=== PATIENT | male | born 1990 | race Two or more races ===

== ENCOUNTER 2025-02-07 20:03 | Inpatient (IN) | payer MEDICAID, OTHER ==
[~2025-02-07] VITALS: Ht 172.7 cm; Wt 101.1 kg
[2025-02-07] MEDS: SODIUM CHLORIDE 0.9% 500 ML IV ONE ×2 (02:00→21:19)
--- NOTE | 2025-02-07 20:58 | ED.PDOC ---
History of Present Illness(SKN HPI Comments 35-year-old male who came to ER for wound check. Accompanied by mother, states that patient has been having nonhealing wounds in both his legs for over 2 months. Denies going to any doctor regarding this wounds. Noted also to be short of breath. For the past day, mother noted patient to be confused and altered prompting her to bring him to the ER. Patient denies using any prohibited drugs recently. Upon arrival of the emergency room, patient is saturating 82% on room air, tachycardic at the 130s, blood pressure 107/54 mm Hg, and with a blood sugar of 200. Reports patient history asthma and CHF. He does not follow up with the PCP regularly. He has suffered medications at this time. Patient is a poor historian. Chief Complaint: Wound Check Time Seen by MD: 20:57 History of Present Illness: Nurses Notes Allergies: Coded Allergies: NO KNOWN ALLERGIES (Unverified , 02/07/25) Information Source: Patient, Relative (Mother) Mode of Arrival: Wheelchair Severity: Moderate Timing: Weeks Duration: Since onset Location: Leg Mechanism: Spontaneous Onset Condition of Object: Contaminated Associated Signs and Symptoms: Redness, Swelling, Pus Vital Signs Vital Signs Date Time Temp Pulse Resp B/P (MAP) Pulse Ox O2 Delivery O2 Flow Rate FiO2 02/07/25 22:30 97.7 104 17 167/134 (145) 100 97.7 Physical Exam General: Patient is lethargic, Skin: Skin in warm, dry and intact. Appropriate color for ethnicity. HEENT: The head is normocephalic and atraumatic. Conjunctivae are clear without exudates or hemorrhage. Sclera is non-icteric. EOM are intact. No signs of nystagmus. Eyelids are normal in appearance without swelling or lesions. Oral mucosa is pink and moist Neck: The neck is supple with normal range of motion. Cardiac: Heart rate and rhythm are normal. No murmurs, gallops, or rubs are auscultated. Respiratory: No signs of respiratory distress. Positive rales bilaterally Abdominal: Abdomen is soft, non-tender without distention. Bowel sounds are present and normoactive in all four quadrants. Extremities: Bilateral lower extremity edema with soiled dressings in place. Bilateral DP pulses palpable. Good capillary refill. Lower extremities are erythematous with extensive areas of purulent open wounds. Neurological: The patient is lethargic, easily arousable, following commands. Speech is slow. There is no facial asymmetry. Psychiatric: The patient appears withdrawn with flat affect Review of Systems: Unable to obtain due to altered mental status. Patient is reporting bilateral lower extremity pain. Past Medical History PAST MEDICAL HISTORY: Asthma, CHF Surgical History: Denies all surgeries Family History Family History: Reviewed,noncontributory to illness Social History Smoker: Non-Smoker Alcohol: Denies ETOH Use Drugs: Denies Drug Use Lives In: Home Was a procedure done? Was a procedure done?: No Differential Diagnosis (INTG) Differential Diagnosis: Abscess, Cellulitis Abscess: Abscess, Bacteremia, Cellulitis, Erysipelas, Gas Gangrene Differential Diagnosis: Osteomyelitis, Other X-Ray, Labs, Meds, VS Vital Signs Date Time Temp Pulse Resp B/P (MAP) Pulse Ox O2 Delivery O2 Flow Rate FiO2 02/07/25 22:30 97.7 104 17 167/134 (145) 100 97.7 02/07/25 20:14 99.6 136 25 107/54 (71) 92 99.6 Lab Test 02/08/25 00:26 02/08/25 00:20 02/07/25 23:19 02/07/25 22:50 Range/Units Urine Color Yellow Yellow Urine Clarity Clear Clear Urine pH 7.5 5.0-9.0 Urine Specific [place] > 1.050 H 1.001-1.035 Urine Protein 2+ H Negative Urine Ketones Negative Negative Urine Blood 2+ H Negative /uL Urine Nitrite Negative Negative Urine Bilirubin Negative Negative Urine Urobilinogen Over Negative mg/dL Urine Leukocyte Esterase Negative Negative /uL Urine RBC 3 0 - 3 /hpf Urine Microscopic WBC 1 0-3 /HPF Urine Squamous Epithelial Cells None seen <5 /hpf Urine Bacteria None seen None Seen /hpf Urine Glucose Trace Normal mg/dL Urine Opiates Screen Neg NEGATIVE Urine Fentanyl Screen Pos NEGATIVE Urine Barbiturates Screen Neg NEGATIVE Urine Phencyclidine Screen Neg NEGATIVE Urine Amphetamines Screen Pos NEGATIVE Urine Benzodiazepines Screen Neg NEGATIVE Urine Cocaine Screen Neg NEGATIVE Urine Cannabinoids Screen Neg NEGATIVE Prothrombin Time 11.9 H 9.3-11.8 sec Prothrombin Time INR 1.14 0.9-1.15 Troponin I High Sensitivity 6 </=54 ng/L Blood Gas Specimen Type Arterial Blood Gas Sample Site Left radial Blood Gas Patient Temperature 37.0 Arterial Blood Date Drawn [id number] Arterial Blood pH 7.467 H 7.350-7.450 Arterial Blood Partial Pressure CO2 37.2 35.0-48.0 mmHg Arterial Blood Partial Pressure O2 86.5 83.0-108.0 mmHg Arterial Blood HCO3 26.3 21.0-28.0 mmol/L Arterial Blood Oxygen Saturation 96.9 94.0-98.0 % Arterial Blood Base Excess 2.6 -2.0-3.0 mmol/L Arterial Blood Oxyhemoglobin 96.1 94.0-98.0 % Arterial Blood Carboxyhemoglobin 0.3 L 0.5-1.5 % Arterial Blood Methemoglobin 0.5 0.0-1.5 % Attila Test Yes Blood Gas Total Hemoglobin 11.70 L 13.5-17.5 g/dL Blood Gas Liter Flow 4.00 Blood Gas Modality Nasal cannula FiO2 % 36.0 Lactic Acid Level 1.8 0.4-2.0 mmol/L Test 02/07/25 22:05 02/07/25 21:00 02/07/25 20:19 Range/Units Troponin I High Sensitivity 5 5 </=54 ng/L White Blood Count 15.4 H 4.4-10.8 10^3/uL Red Blood Count 4.19 L 4.5-5.90 10^6/uL Hemoglobin 11.4 L 13.5-17.5 g/dL Hematocrit 34.4 L 41.0-53.0 % Mean Corpuscular Volume 82.2 80.0-100.0 fL Mean Corpuscular Hemoglobin 27.3 L 28.0-32.0 pg Mean Corpuscular Hemoglobin Concent 33.2 32.0-36.0 g/dL Red Cell Distribution Width 13.4 11.8-14.3 % Platelet Count 298 140-450 10^3/uL Mean Platelet Volume 6.8 L 6.9-10.8 fL Neutrophils (%) (Auto) 91.3 H 37.0-80.0 % Lymphocytes (%) (Auto) 5.7 L 10.0-50.0 % Monocytes (%) (Auto) 2.4 0.0-12.0 % Eosinophils (%) (Auto) 0.4 0.0-7.0 % Basophils (%) (Auto) 0.2 0.0-2.0 % Neutrophils # (Auto) 14.1 H 1.6-8.6 10 ^3/uL Lymphocytes # (Auto) 0.9 0.4-5.4 10 ^3/uL Monocytes # (Auto) 0.4 0-1.3 10 ^3/uL Eosinophils # (Auto) 0.1 0-0.8 10 ^3/uL Basophils # (Auto) 0 0-0.2 10 ^3/uL Nucleated Red Blood Cells 0.1 % Sodium Level 131 L 136-145 mmol/L Potassium Level 3.8 3.5-5.1 mmol/L Chloride Level 99 98-107 mmol/L Carbon Dioxide Level 21 20-31 mmol/L Anion Gap 11 5-15 Blood Urea Nitrogen 11 9-23 mg/dL Creatinine 0.81 0.700-1.30 mg/dL Glomerular Filtration Rate Calc 118 >90 mL/min BUN/Creatinine Ratio 13.6 10.0-20.0 Serum Glucose 173 H 74-106 mg/dL Lactic Acid Level 2.7 *H 0.4-2.0 mmol/L Calcium Level 8.2 L 8.7-10.4 mg/dL Total Bilirubin 0.3 0.2-1.0 mg/dL Aspartate Amino Transferase (AST) 50 H 13-40 U/L Alanine Aminotransferase (ALT) 44 H 7-40 U/L Alkaline Phosphatase 130 H 46-116 U/L B-Type Natriuretic Peptide 28.84 0-100 pg/mL Total Protein 6.8 5.7-8.2 g/dL Albumin 3.0 L 3.2-4.8 g/dL Plasma/Serum Blood Alcohol < 3.0 <10 mg/dL POC Glucose 200 H 70-106 mg/dl Microbiology Date/Time Source Procedure Growth Status 02/07/25 21:00 Blood Blood Culture - Preliminary Resulted 02/07/25 20:48 Blood Blood Culture - Preliminary Resulted 02/07/25 20:30 Leg Right Gram Stain - Final Resulted 02/07/25 20:30 Leg Right Wound Culture - Preliminary Resulted 02/07/25 20:30 Leg Left Gram Stain - Final Resulted 02/07/25 20:30 Leg Left Wound Culture - Preliminary Resulted Current Medications Medications (Trade) Dose Ordered Sig/Evelin Route Start Time Stop Time Status Last Admin Ketorolac Tromethamine (Toradol Injection) 15 mg ONCE ONCE IV 02/07/25 20:45 02/07/25 20:46 DC 02/07/25 21:23 Acetaminophen (Ofirmev) 1,000 mg ONCE ONCE IV 02/07/25 20:45 02/07/25 20:46 DC 02/07/25 21:24 Sodium Chloride 500 ml @ 500 mls/hr Q1H ONCE IV 02/07/25 20:45 02/07/25 21:44 DC 02/07/25 21:19 Vancomycin HCl 250 ml @ 250 mls/hr ONCE ONCE IV 02/07/25 20:45 02/07/25 21:44 DC 02/07/25 21:45 Ceftriaxone Sodium 50 ml @ 100 mls/hr ONCE ONCE IV 02/07/25 20:45 02/07/25 21:14 DC 02/07/25 21:23 Sodium Chloride 500 ml @ 500 mls/hr Q1H ONCE IV 02/07/25 23:15 02/08/25 00:14 DC 02/07/25 02:00 Bilateral lower extremity venous duplex Clinical History: b/l le edema Comparison: None Technique: Duplex Doppler evaluation of the deep venous systems of both lower extremities from the common femoral veins to the popliteal veins including color Doppler and spectral/pulsed waveform analysis was performed. Findings: RIGHT SIDE: The common femoral vein demonstrates appropriate compressibility and waveform variability. There is compressibility/patency of the great saphenous vein at the proximal thigh. The femoral vein demonstrates appropriate compressibility and waveform variability. The deep femoral vein demonstrates appropriate compressibility and waveform variability. The popliteal vein demonstrates appropriate compressibility and waveform variability. There is normal compressibility at the tibioperoneal trunk. LEFT SIDE: The common femoral vein demonstrates appropriate compressibility and waveform variability. There is compressibility/patency of the great saphenous vein at the proximal thigh. The femoral vein demonstrates appropriate compressibility and waveform darrion iability. The deep femoral vein demonstrates appropriate compressibility and waveform variability. The popliteal vein demonstrates appropriate compressibility and waveform variability. There is normal compressibility at the tibioperoneal trunk. Impression: No evidence of right or left femoropopliteal venous thrombosis. CHEST RADIOGRAPH Indication: Suspected Sepsis Technique: Single frontal view of the chest was obtained COMPARISON: None FINDINGS / IMPRESSION: Lines and Tubes: None Lungs: Extensive airspace consolidation in right lower lobe consistent with pneumonia. Mild nonspecific opacity noted at left lung base which may also represent pneumonia. Pleura: No effusion. No pneumothorax. Cardiomediastinal contours: Unremarkable PROCEDURE(s): CTACH - CT ANGIO CHEST CONTRAST REASON: dyspnea, hypoxia, le edema ORDER NUMBER(s): [id number], ACCESSION NUMBER(s): [id number] CLINICAL HISTORY: dyspnea, hypoxia, le edema TECHNIQUE: CT angiogram of the chest was performed with intravenous contrast. 3D MIP reconstructed images were created and archived on the PACS system. This exam was performed according to our departmental dose optimization program. Up-to-date CT equipment and radiation dose reduction techniques are utilized as appropriate. CTDI: DLP: WID: COMPARISON: None FINDINGS: Lower Neck: Unremarkable Axilla, Mediastinum and Piedad: No axillary lymphadenopathy. There is mediastinal and bilateral hilar lymphadenopathy. Heart and Great Vessels: Normal-sized heart without pericardial effusion. Thoracic aorta is patent and normal caliber. Patent 3-vessel aortic arch. There is no central or segmental pulmonary artery filling defect identified. Slight limited evaluation of subsegmental pulmonary arteries due to respiratory motion. Airway, Lungs and Pleura: There is layering debris in the trachea and right bronchus intermedius. There are patchy airspace consolidations bilaterally and a large patchy and confluent airspace consolidation in the right lower. Small right pleural effusion. Chest Wall and Osseous Structures: Unremarkable. Upper abdomen: Thickening of the bilateral adrenal glands. Prior cholecystectomy. No acute abnormality. IMPRESSION: 1. No evidence of pulmonary embolism. 2. Multifocal bilateral pneumonia. This is severe in the right lower lobe where there is a large airspace consolidation. This could potentially be on the basis of aspiration given mild layering debris in the trachea and right bronchus intermedius. 3. Small right pleural effusion. 4. Mild mediastinal and bilateral hilar lymphadenopathy, likely reactive. Time of 1ST Reevaluation: 20:52 Reevaluation 1ST: Unchanged Patient Education/Counseling: Diagnosis, Treatment, Other (Need for admission) Family Education/Counseling: Diagnosis, Treatment, Other (Need for admission) Departure 1 Departure Time of Disposition: 23:11 Impression: Primary Impression: Sepsis Additional Impression: Bilateral lower leg cellulitis Disposition: ADMITTED INPATIENT Condition: Serious Comments 35 year with untreated bilateral lower extremity wounds likely secondary to lymphedema. Patient is started on IV fluids, antibiotics in the emergency department. Patient admitted to hospitalist service for further treatment, evaluation and monitoring. Extensive evaluation was performed in attempt to identify or rule out: (See differential diagnosis section) The following tests were ordered, and results were reviewed by me and discussed with patient: (See diagnostic results section) The following test were independently interpreted by me: N/A I reviewed and agreed with the following test results read by other providers: N/A I reviewed the following notes from the pt's past medical encounters: N/A Additional information was gathered from interviewing the following independent historians: Patient's mother at bedside Discussion of management or test interpretation with external physician/other qualified health child care director: N/A Addressed an acute or chronic illness that poses a threat to life or bodily function: Sepsis, hypotension, hypoxia Decision regarding hospitalization or escalation of hospital level of care: Risk and benefits of admission for further treatment of patient's condition was considered. Due to patient's current clinical condition, high risk of decline and poor outcome if discharged and need for further inpatient management and monitoring, patient will be admitted to the hospital. Discussed with patient. Drug therapy requiring intensive monitoring for toxicity: N/A Parenteral controlled substances: N/A Decision regarding elective major surgery with identified patient or procedure risk factors: N/A Decision regarding emergency major surgery: N/A Decision not to resuscitate or to de-escalate care because of poor prognosis: N/A Diagnosis or treatment significantly limited by social determinants of health: N/A Critical Care Note Critical Care Time?: Yes (35 min-critical care time only) Critical care comment: Due to a high probability of clinically significant, life threatening deterioration, the patient required my highest level of preparedness to intervene emergently and I personally spent this critical care time directly and personally managing the patient. This critical care time included obtaining a history; examining the patient; pulse oximetry; ordering and review of studies; arranging urgent treatment with development of a management plan; evaluation of patient's response to treatment; frequent reassessment; and, discussions with other providers. This critical care time was performed to assess and manage the high probability of imminent, life-threatening deterioration that could result in multi-organ failure. It was exclusive of separately billable procedures and treating other patients and teaching time. Please see my other sections and the rest of the note for further information on patient assessment and treatment. Stability Stability form required: No Heart Score Heart Score: Heart Score Response (Comments) Value History N/A 0 EKG N/A 0 Age N/A 0 Risk Factors N/A 0 Troponin N/A 0 Total 0 I personally scribed for DANIELLE DAY MD ([email or web address]) on 02/07/25 at 20:58. Electronically submitted by Bogdan Keating ([employer]). I personally scribed for DANIELLE DAY MD ([email or web address]) on 02/08/25 at 00:17. Electronically submitted by Bogdan Keating ([employer]). I personally scribed for DANIELLE DAY MD ([email or web address]) on 02/08/25 at 01:29. Electronically submitted by Bogdan Keating ([employer]). DANIELLE DAY MD February 07, 2025 20:58
[2025-02-07] MEDS: KETOROLAC TROMETH 30 MG/ML 1ML VIAL IV ONE (21:23)
[2025-02-07] MEDS: cefTRIAXone 1GM/50ML D5W 50 ML IV ONE (21:23)
[2025-02-07] MEDS: ACETAMINOPHEN IV 1000 MG/100ML (10MG/ML) IV ONE (21:24)
[2025-02-07 21:27] LABS: Basophils # (auto) 0 10 ^3/uL (0-0.2); Basophils % (auto) 0.2 % (0.0-2.0); Eosinophils # (auto) 0.1 10 ^3/uL (0-0.8); Eosinophils % (auto) 0.4 % (0.0-7.0); Hematocrit 34.4 % (41.0-53.0); Hemoglobin 11.4 g/dL (13.5-17.5); Lymphocytes # (auto) 0.9 10 ^3/uL (0.4-5.4); Lymphocytes % (auto) 5.7 % (10.0-50.0); Mean Corpuscular Hemoglobin 27.3 pg (28.0-32.0); Mean Corpuscular Hgb Conc. 33.2 g/dL (32.0-36.0); Mean Corpuscular Volume 82.2 fL (80.0-100.0); Monocytes # (auto) 0.4 10 ^3/uL (0-1.3); Monocytes % (auto) 2.4 % (0.0-12.0); Neutrophils # (auto) 14.1 10 ^3/uL (1.6-8.6); Neutrophils % (auto) 91.3 % (37.0-80.0); Nucleated Red Blood Cells % 0.1 %; Platelet Count (auto) 298 10^3/uL (140-450); Red Blood Cells 4.19 10^6/uL (4.5-5.90); Red Cell Distribution Width 13.4 % (11.8-14.3); White Blood Cell 15.4 10^3/uL (4.4-10.8)
[2025-02-07] MEDS: VANCOMYCIN 1GM/200ML PM 250 ML IV ONE (21:45)
--- NOTE | 2025-02-07 22:10 | DVH ---
Bilateral lower extremity venous duplex Clinical History: b/l le edema Comparison: None Technique: Duplex Doppler evaluation of the deep venous systems of both lower extremities from the common femora l veins to the popliteal veins including color Doppler and spectral/pulsed waveform analysis was perf ormed. Findings: RIGHT SIDE: The common femoral vein demonstrates appropriate compressibility and waveform variability. There is compressibility/patency of the great saphenous vein at the proximal thigh. The femoral vein demonstrates appropriate compressibility and waveform variability. The deep femoral vein demonstrates appropriate compressibility and waveform variability. The popliteal vein demonstrates appropriate compressibility and waveform variability. There is normal compressibility at the tibioperoneal trunk. LEFT SIDE: The common femoral vein demonstrates appropriate compressibility and waveform variability. There is compressibility/patency of the great saphenous vein at the proximal thigh. The femoral vein demonstrates appropriate compressibility and waveform variability. The deep femoral vein demonstrates appropriate compressibility and waveform variability. The popliteal vein demonstrates appropriate compressibility and waveform variability. There is normal compressibility at the tibioperoneal trunk. Impression: No evidence of right or left femoropopliteal venous thrombosis.
[2025-02-07 22:28] LABS: Anion Gap 11 (5-15); BUN/Creatinine Ratio 13.6 (10.0-20.0); Blood Urea Nitrogen 11 mg/dL (9-23); Carbon Dioxide 21 mmol/L (20-31); Chloride 99 mmol/L (98-107); Potassium 3.8 mmol/L (3.5-5.1); Total Protein 6.8 g/dL (5.7-8.2)
[2025-02-07 22:29] LABS: Alanine Aminotransferase 44 U/L (7-40); Alkaline Phosphatase 130 U/L (46-116); Aspartate Aminotransferase 50 U/L (13-40); Bilirubin, Total 0.3 mg/dL (0.2-1.0); Blood Alcohol < 3.0 mg/dL (<10); Calcium 8.2 mg/dL (8.7-10.4); Glucose 173 mg/dL (74-106); Sodium 131 mmol/L (136-145)
[2025-02-07 22:30] LABS: Lactic Acid w/Reflex 2.7 mmol/L (0.4-2.0)
[2025-02-07 23:26] LABS: Base Excess 2.6 mmol/L (-2.0-3.0)
--- NOTE | 2025-02-07 23:54 | DVH ---
CHEST RADIOGRAPH Indication: Suspected Sepsis Technique: Single frontal view of the chest was obtained COMPARISON: None FINDINGS / IMPRESSION: Lines and Tubes: None Lungs: Extensive airspace consolidation in right lower lobe consistent with pneumonia. Mild nonspeci fic opacity noted at left lung base which may also represent pneumonia. Pleura: No effusion. No pneumothorax. Cardiomediastinal contours: Unremarkable
[2025-02-08] VITALS (10 sets, daily range): BP systolic 90–121; BP diastolic 40–75; PULSE 97–109; RESP 17–20; TEMP 97.4–98.4; O2SAT 93–98
--- NOTE | 2025-02-08 00:16 | DVH ---
CLINICAL HISTORY: dyspnea, hypoxia, le edema TECHNIQUE: CT angiogram of the chest was performed with intravenous contrast. 3D MIP reconstructed i mages were created and archived on the PACS system. This exam was performed according to our [facility] nta dose optimization program. Up-to-date CT equipment and radiation dose reduction techniques are u tilized as appropriate. CTDI: DLP: WID: COMPARISON: None FINDINGS: Lower Neck: Unremarkable Axilla, Mediastinum and Piedad: No axillary lymphadenopathy. There is mediastinal and bilateral hilar lymphadenopathy. Heart and Great Vessels: Normal-sized heart without pericardial effusion. Thoracic aorta is patent a nd normal caliber. Patent 3-vessel aortic arch. There is no central or segmental pulmonary artery fi lling defect identified. Slight limited evaluation of subsegmental pulmonary arteries due to respirat ory motion. Airway, Lungs and Pleura: There is layering debris in the trachea and right bronchus intermedius. The re are patchy airspace consolidations bilaterally and a large patchy and confluent airspace consolida tion in the right lower. Small right pleural effusion. Chest Wall and Osseous Structures: Unremarkable. Upper abdomen: Thickening of the bilateral adrenal glands. Prior cholecystectomy. No acute abnormalit y. IMPRESSION: 1. No evidence of pulmonary embolism. 2. Multifocal bilateral pneumonia. This is severe in the right lower lobe where there is a large airs pace consolidation. This could potentially be on the basis of aspiration given mild layering debris i n the trachea and right bronchus intermedius. 3. Small right pleural effusion. 4. Mild mediastinal and bilateral hilar lymphadenopathy, likely reactive.
[2025-02-08 00:31] LABS: Urine Bacteria None Seen /hpf (None Seen)
[2025-02-08 00:43] LABS: Urine Blood 2+ /uL (Negative); Urine Clarity Clear (Clear); Urine Color Yellow (Yellow); Urine Protein, UAD 2+ (Negative); Urine Squamous Epithelial Cell None Seen /hpf (<5); Urine Urobilinogen OVER mg/dL (Negative); Urine WBC 1 /HPF (0-3); Urine pH 7.5 (5.0-9.0)
[2025-02-08 00:48] LABS: Urine Specific Gravity > 1.050 (1.001-1.035)
[2025-02-08 01:25] LABS: INR 1.14 (0.9-1.15); Prothrombin Time 11.9 sec (9.3-11.8)
[2025-02-08 01:34] LABS: Cannabinoid Screen, Urine Neg (NEGATIVE)
[2025-02-08 01:41] LABS: Amphetamine Screen, Urine Pos (NEGATIVE); Barbiturate Scree,Urine Neg (NEGATIVE); Benzodiazephine Screen, Urine Neg (NEGATIVE); Cocaine Screen, Urine Neg (NEGATIVE); Opiate Scree,Urine Neg (NEGATIVE); Phencyclidine Screen, Urine Neg (NEGATIVE)
[2025-02-08] MEDS ORDERED: ONDANSETRON HCL 4 MG/2 ML VIAL IV PRN (01:45)
[2025-02-08] MEDS ORDERED: HYDROcodone-ACET 5/325MG TAB PO PRN (01:45)
[2025-02-08] MEDS ORDERED: VANCOMYCIN PER PHARMACY 0 MG IV SCH (01:45)
[2025-02-08] MEDS ORDERED: ACETAMINOPHEN 325 MG TAB PO PRN (01:45)
[2025-02-08] MEDS: IOHEXOL 350 MG/ML 100ML IJ ONE (02:17)
[2025-02-08] MEDS: SODIUM CHLORIDE 0.9% 1,000 ML IV ONE (02:18)
[2025-02-08] MEDS: SODIUM CHLORIDE 0.9% 1,000 ML IV SCH (02:30)
[2025-02-08] MEDS: AZITHROMYCIN 500MG/ 250ML 250 ML IV SCH (02:34)
[2025-02-08] MEDS: VANCOMYCIN 1GM/200ML PM 250 ML IV ONE (02:35)
--- NOTE | 2025-02-08 03:21 | DVHHP2 ---
History of Present Illness History of Present Illness A 35-year-old male with past medical history of asthma and CHF who presented to the ED for evaluation of chronic non-healing wounds in both lower extremities, ongoing for over 2 months. He reports worsening redness, swelling, and purulence. He denies follow-up with a doctor or wound care prior to presentation. He also endorsed shortness of breath. Per mother, he appeared more confused over the past day, which prompted ED evaluation. On arrival, he was found to be hypoxic with SpO2 82% on room air, tachycardic in the 130sHe denied recent drug use, but urine tox screen returned positive for fentanyl and meth. CT angiogram of the chest ruled out PE but revealed multifocal bilateral pneumonia, more severe in the RLL, possibly aspiration in etiology. There is also mild mediastinal and hilar lymphadenopathy, and a small right pleural effusion. Due to persistent altered mentation and concern for sepsis, he was started on vancomycin and ceftriaxone, IV fluids, and a central line was placed after repeated peripheral IV removal by the patient. PAST MEDICAL HISTORY: Asthma Congestive heart failure (CHF) SURGICAL HISTORY: Cholecystectomy SOCIAL HISTORY: Non-smoker Denies alcohol use Denies drug use (contradicted by tox screen: fentanyl and meth positive) h/o heroin abuse Lives at home Review of Systems Review of Systems unable to obtain Allergies: Coded Allergies: NO KNOWN ALLERGIES (Unverified , 02/07/25) Medications Current Medications Medications Dose Ordered Sig/Evelin Route Start Time Stop Time Status Last Admin Dose Admin Sodium Chloride 1,000 ml @ 100 mls/hr Q10H IV 02/08/25 01:45 02/08/25 02:30 100 MLS/HR Acetaminophen 650 mg Q6HP PRN PO 02/08/25 01:45 Acetaminophen/ Hydrocodone Bitart 1 tab Q4HP PRN PO 02/08/25 01:45 Ondansetron HCl 4 mg Q4HP PRN IV 02/08/25 01:45 Enoxaparin Sodium 40 mg DAILY SC 02/08/25 10:00 Vancomycin HCl 0 ml @ 0 mls/hr UD IV 02/08/25 01:45 UNV Piperacillin Sod/ Tazobactam Sod 100 ml @ 25 mls/hr Q8HR IV 02/08/25 06:00 Azithromycin 250 ml @ 125 mls/hr DAILY IV 02/08/25 01:45 Exam Vital Signs Vital Signs Date Time Temp Pulse Resp B/P (MAP) Pulse Ox O2 Delivery O2 Flow Rate FiO2 02/08/25 02:19 98 18 98 Room Air* 0 21 02/08/25 02:01 115/67 (83) 02/07/25 22:30 97.7 97.7 Exam General: Appears ill, drowsy but arousable HEENT: No signs of trauma CV: regular rhythm, no murmurs Pulm: decreased breath sounds bibasally, crackles on RLL GI: Soft, non-tender Extremities: Bilateral lower extremity wounds with erythema, swelling, and purulent drainage suggestive of cellulitis Neuro: Alert but confused; no focal deficits Skin: Chronic appearing wounds on bilateral legs, signs of local infection Psych: Agitated, pulled out IVs Labs/Xrays Labs Test 02/08/25 00:26 02/08/25 00:20 02/07/25 23:19 02/07/25 22:50 Range/Units Urine Color Yellow Yellow Urine Clarity Clear Clear Urine pH 7.5 5.0-9.0 Urine Specific [place] > 1.050 H 1.001-1.035 Urine Protein 2+ H Negative Urine Ketones Negative Negative Urine Blood 2+ H Negative /uL Urine Nitrite Negative Negative Urine Bilirubin Negative Negative Urine Urobilinogen Over Negative mg/dL Urine Leukocyte Esterase Negative Negative /uL Urine RBC 3 0 - 3 /hpf Urine Microscopic WBC 1 0-3 /HPF Urine Squamous Epithelial Cells None seen <5 /hpf Urine Bacteria None seen None Seen /hpf Urine Glucose Trace Normal mg/dL Urine Opiates Screen Neg NEGATIVE Urine Fentanyl Screen Pos NEGATIVE Urine Barbiturates Screen Neg NEGATIVE Urine Phencyclidine Screen Neg NEGATIVE Urine Amphetamines Screen Pos NEGATIVE Urine Benzodiazepines Screen Neg NEGATIVE Urine Cocaine Screen Neg NEGATIVE Urine Cannabinoids Screen Neg NEGATIVE Prothrombin Time 11.9 H 9.3-11.8 sec Prothrombin Time INR 1.14 0.9-1.15 Troponin I High Sensitivity 6 </=54 ng/L Blood Gas Specimen Type Arterial Blood Gas Sample Site Left radial Blood Gas Patient Temperature 37.0 Arterial Blood Date Drawn [id number] Arterial Blood pH 7.467 H 7.350-7.450 Arterial Blood Partial Pressure CO2 37.2 35.0-48.0 mmHg Arterial Blood Partial Pressure O2 86.5 83.0-108.0 mmHg Arterial Blood HCO3 26.3 21.0-28.0 mmol/L Arterial Blood Oxygen Saturation 96.9 94.0-98.0 % Arterial Blood Base Excess 2.6 -2.0-3.0 mmol/L Arterial Blood Oxyhemoglobin 96.1 94.0-98.0 % Arterial Blood Carboxyhemoglobin 0.3 L 0.5-1.5 % Arterial Blood Methemoglobin 0.5 0.0-1.5 % Attila Test Yes Blood Gas Total Hemoglobin 11.70 L 13.5-17.5 g/dL Blood Gas Liter Flow 4.00 Blood Gas Modality Nasal cannula FiO2 % 36.0 Lactic Acid Level 1.8 0.4-2.0 mmol/L Test 02/07/25 21:00 02/07/25 20:19 Range/Units White Blood Count 15.4 H 4.4-10.8 10^3/uL Red Blood Count 4.19 L 4.5-5.90 10^6/uL Hemoglobin 11.4 L 13.5-17.5 g/dL Hematocrit 34.4 L 41.0-53.0 % Mean Corpuscular Volume 82.2 80.0-100.0 fL Mean Corpuscular Hemoglobin 27.3 L 28.0-32.0 pg Mean Corpuscular Hemoglobin Concent 33.2 32.0-36.0 g/dL Red Cell Distribution Width 13.4 11.8-14.3 % Platelet Count 298 140-450 10^3/uL Mean Platelet Volume 6.8 L 6.9-10.8 fL Neutrophils (%) (Auto) 91.3 H 37.0-80.0 % Lymphocytes (%) (Auto) 5.7 L 10.0-50.0 % Monocytes (%) (Auto) 2.4 0.0-12.0 % Eosinophils (%) (Auto) 0.4 0.0-7.0 % Basophils (%) (Auto) 0.2 0.0-2.0 % Neutrophils # (Auto) 14.1 H 1.6-8.6 10 ^3/uL Lymphocytes # (Auto) 0.9 0.4-5.4 10 ^3/uL Monocytes # (Auto) 0.4 0-1.3 10 ^3/uL Eosinophils # (Auto) 0.1 0-0.8 10 ^3/uL Basophils # (Auto) 0 0-0.2 10 ^3/uL Nucleated Red Blood Cells 0.1 % Sodium Level 131 L 136-145 mmol/L Potassium Level 3.8 3.5-5.1 mmol/L Chloride Level 99 98-107 mmol/L Carbon Dioxide Level 21 20-31 mmol/L Anion Gap 11 5-15 Blood Urea Nitrogen 11 9-23 mg/dL Creatinine 0.81 0.700-1.30 mg/dL Glomerular Filtration Rate Calc 118 >90 mL/min BUN/Creatinine Ratio 13.6 10.0-20.0 Serum Glucose 173 H 74-106 mg/dL Calcium Level 8.2 L 8.7-10.4 mg/dL Total Bilirubin 0.3 0.2-1.0 mg/dL Aspartate Amino Transferase (AST) 50 H 13-40 U/L Alanine Aminotransferase (ALT) 44 H 7-40 U/L Alkaline Phosphatase 130 H 46-116 U/L B-Type Natriuretic Peptide 28.84 0-100 pg/mL Total Protein 6.8 5.7-8.2 g/dL Albumin 3.0 L 3.2-4.8 g/dL Plasma/Serum Blood Alcohol < 3.0 <10 mg/dL POC Glucose 200 H 70-106 mg/dl Assessment/Plan Assessment/Plan #Acute metabolic/toxic encephalopathy: sepsis+ polysubstance abuse #Acute respiratory failure resolved #Sepsis due to pneumonia gram +/gram -, bilateral leg cellulitis #Pneumonia gram+/gram -: possible aspiration pneumonia #Bilateral leg cellulitis #DM type 2? #Heart failure?, compensated #H/o Asthma #PE ruled out #DVT ruled out #Fentanyl abuse? #Meth abuse #Transaminitis #Mild hyponatremia Admit Telemetry Regular diet after swallow evaluation NS 100cc/h Azithromycin Zosyn Vancomycin Labs am Tylenol for pain ECHO pending Wound consult: evaluate need of further debridement Case discussed with Dr Moser Full code Plan discussed with: Patient, Other (rn) My Orders Orders - RIZWAN BAUTISTA RESIDENT Procedure Category Date Status Time Admit ADMIT 02/08/25 Transmitted 01:33 Code Status CODE 02/08/25 Transmitted 01:33 Vital Signs PURVI 02/08/25 In Process 01:33 Review Orders With PURVI 02/08/25 In Process . 01:33 Regular Diet DIET 02/08/25 Transmitted Breakfast Sodium Chloride 0.9% PHA 02/08/25 In Process 01:45 Acetaminophen Tablet PHA 02/08/25 In Process (Tylenol Tablet) 01:45 Notify Md Of Changes PURVI 02/08/25 In Process From Base 01:33 Advance Directive PURVI 02/08/25 In Process 01:33 Patient Condition ORDERS 02/08/25 Transmitted 01:33 Allergies PURVI 02/08/25 In Process 01:33 Hydrocodone-Acet PHA 02/08/25 In Process 5/325mg Tab ([place] 01:45 Ondansetron Hcl PHA 02/08/25 In Process (Zofran) 01:45 Enoxaparin Sodium PHA 02/08/25 In Process (Lovenox) 10:00 Vancomycin Per PHA 02/08/25 Pending Pharmacy 01:45 Piperacillin-Tazob PHA 02/08/25 In Process 3.375gm (Zosyn 3.375g 06:00 Azithromycin 500mg/ PHA 02/08/25 In Process 250ml (Zithromax 50 01:45 Date of Service: February 08, 2025 Billing Provider: ALDEN MOSER MD Common Visit Codes: [id number] INP/OBS CARE (HIGH), [id number] CARE 30- 74 MIN Secondary Visit Codes: [id number] CARE PLAN 30 MINUTES RIZWAN BAUTISTA RESIDENT February 08, 2025 03:21
--- NOTE | 2025-02-08 03:21 | DVHNC2 ---
Central Line Recorder of insertion practice: [employer] Occupation of asp net software developer: Attending Physician Indication: Inability to obtain IV Room prepared for procedure: Yes [employer] performed hand hygien: Yes Maximal sterile barrier precau: Mask/Eye shield, Sterile gown, Cap, Sterlie gloves, Large sterlie drape Skin Preparation: Chlorhexidine gluconate Skin preparation completely dr: Yes Insertion site: Right, Femoral Central line catheter type: [id number] dialysis Number of lumens: 3 Central line exchanged over a: No Antiseptic ointment applied to: No Post Assessment: Proper placement Informed consent obtained: Yes Risks/benefits/alt described: Yes Date of Service: February 08, 2025 Billing Provider: DANIELLE DAY MD Common Visit Codes: PROCEDURE ONLY Procedure Codes: [id number] NON-TUNNEL CV CATH RIZWAN BAUTISTA RESIDENT February 08, 2025 03:21
[2025-02-08] MEDS: PIPERACILLIN-TAZOB 3.375GM 100 ML IV SCH (06:41)
[2025-02-08 10:19] LABS: Basophils # (auto) 0 10 ^3/uL (0-0.2); Basophils % (auto) 0.2 % (0.0-2.0); Eosinophils # (auto) 0 10 ^3/uL (0-0.8); Hematocrit 36.3 % (41.0-53.0); Lymphocytes # (auto) 0.8 10 ^3/uL (0.4-5.4); Lymphocytes % (auto) 6.1 % (10.0-50.0); Mean Corpuscular Hemoglobin 27.4 pg (28.0-32.0); Mean Corpuscular Hgb Conc. 33.1 g/dL (32.0-36.0); Mean Corpuscular Volume 82.8 fL (80.0-100.0); Monocytes # (auto) 0.6 10 ^3/uL (0-1.3); Monocytes % (auto) 4.6 % (0.0-12.0); Neutrophils # (auto) 11.1 10 ^3/uL (1.6-8.6); Neutrophils % (auto) 89.1 % (37.0-80.0); Nucleated Red Blood Cells % 0.1 %; Platelet Count (auto) 295 10^3/uL (140-450); Red Blood Cells 4.39 10^6/uL (4.5-5.90); Red Cell Distribution Width 13.7 % (11.8-14.3); White Blood Cell 12.5 10^3/uL (4.4-10.8)
[2025-02-08 10:54] LABS: Albumin 3.3 g/dL (3.2-4.8); Anion Gap 9 (5-15); BUN/Creatinine Ratio 13.6 (10.0-20.0); Carbon Dioxide 22 mmol/L (20-31); Chloride 101 mmol/L (98-107); Potassium 4.5 mmol/L (3.5-5.1); Total Protein 7.8 g/dL (5.7-8.2)
[2025-02-08 10:55] LABS: Bilirubin, Total 0.4 mg/dL (0.2-1.0)
[2025-02-08 10:57] LABS: Sodium 132 mmol/L (136-145)
[2025-02-08 10:58] LABS: Alanine Aminotransferase 42 U/L (7-40); Alkaline Phosphatase 129 U/L (46-116); Aspartate Aminotransferase 56 U/L (13-40); Blood Urea Nitrogen 8 mg/dL (9-23); Calcium 8.7 mg/dL (8.7-10.4); Glucose 136 mg/dL (74-106)
[2025-02-08] MEDS: ENOXAPARIN SOD 40 MG/0.4 ML SYRINGE SC SCH (11:12)
[2025-02-08 11:15] LABS: Hepatitis B Core Total AB Negative (Negative)
[2025-02-08 11:37] LABS: Hepatitis A Total Antibody Positive (Negative); Hepatitis B Surface Antibody Positive (Negative); Hepatitis B Surface Antigen Negative (Negative)
[2025-02-08 11:40] LABS: Hepatitis C Antibody Positive (Negative)
--- NOTE | 2025-02-08 17:31 | DVHPNRES ---
Progress Note Date Seen: February 08, 2025 Resident Creating Document: ALEJANDRO SAM RESIDENT Has the PT tested + for MRSA If YES, has PT been informed?: No Medical Necessity Reason Pt with a Central, PICC or Fol: No Medical Necessity Reason History of Present Illness A 35-year-old male with past medical history of asthma and CHF who presented to the ED for evaluation of chronic non-healing wounds in both lower extremities, ongoing for over 2 months. He reports worsening redness, swelling, and purulence. He denies follow-up with a doctor or wound care prior to presentation. He also endorsed shortness of breath. Per mother, he appeared more confused over the past day, which prompted ED evaluation. On arrival, he was found to be hypoxic with SpO2 82% on room air, tachycardic in the 130s.He denied recent drug use, but urine tox screen returned positive for fentanyl and meth. CT angiogram of the chest ruled out PE but revealed multifocal bilateral pneumonia, more severe in the RLL, possibly aspiration in etiology. There is also mild mediastinal and hilar lymphadenopathy, and a small right pleural effusion. Due to persistent altered mentation and concern for sepsis, he was started on vancomycin and ceftriaxone, IV fluids, and a central line was placed after repeated peripheral IV removal by the patient. PAST MEDICAL HISTORY: Asthma, Congestive heart failure (CHF) SURGICAL HISTORY: Cholecystectomy SOCIAL HISTORY: Non-smoker, Denies alcohol use,(contradicted by tox screen: fentanyl and meth positive) h/o heroin abuse PN: 02/08/2025: This is a 35-year-old male who was admitted overnight for altered mental status. Patient was deeply asleep when i was at bed side. I was not able to get any information from the patient today. However, information from the night doctors stated that patient was brought in altered has bilateral non-healing wounds in his lower extremities that has been ongoing for the past 2 months. Patient reports worsening of this bilateral wound associated with swelling and purulent discharges. Patient denied ever seen a doctor for the wound and he also endorsed shortness of breaths. His initial vitals revealed tachycardia HR: 1130, hypoxic with SpO2 82% on room air, hypotension and blood wok showed leukocytosis. Wound and blood taken for culture. Pending report Subjective Review of Systems Unable to obtain any review of systems Objective vital signs Vital Sign Date Time Temp Pulse Resp B/P (MAP) Pulse Ox O2 Delivery O2 Flow Rate FiO2 02/08/25 13:00 98.3 106 20 121/75 (90) 96 98.3 02/08/25 08:00 Nasal Cannula* 4 36 Total Intake and Output 02/07/25 02/07/25 02/08/25 15:00 23:00 07:00 Intake Total 550 ml 250 ml Output Total 150 ml Balance 550 ml 100 ml medications Current Medications Medications Dose Ordered Sig/Evelin Route Start Time Stop Time Status Last Admin Dose Admin Sodium Chloride 1,000 ml @ 100 mls/hr Q10H IV 02/08/25 01:45 02/08/25 02:30 100 MLS/HR Acetaminophen 650 mg Q6HP PRN PO 02/08/25 01:45 Acetaminophen/ Hydrocodone Bitart 1 tab Q4HP PRN PO 02/08/25 01:45 Ondansetron HCl 4 mg Q4HP PRN IV 02/08/25 01:45 Enoxaparin Sodium 40 mg DAILY SC 02/08/25 10:00 02/08/25 11:12 40 MG Vancomycin HCl 0 ml @ 0 mls/hr UD IV 02/08/25 01:45 Piperacillin Sod/ Tazobactam Sod 100 ml @ 25 mls/hr Q8HR IV 02/08/25 06:00 02/08/25 14:46 25 MLS/HR Azithromycin 250 ml @ 125 mls/hr DAILY IV 02/08/25 01:45 02/08/25 11:12 125 MLS/HR Examination General Appearance: A0X1, sleeping HEENT: Atraumatic, PERRLA, EOMI, dry mucous membrane Respiratory: Clear to auscultation, Normal air movement Cardiovascular: Regular rate, Normal S1, Normal S2, No murmurs, no chest wall tenderness Abdominal: NO distention, no tenderness, bowel sounds present, no scars noted Extremities: two bandage wraped around his legs Skin: No rashes, No breakdown, No significant lesion Neuro: lying in bed Psych/Mental Status: could not assess laboratory and microbiology Laboratory Tests 02/08/25 08:53 Test 02/08/25 08:53 Range/Units Serum Glucose 136 H 74-106 mg/dL Microbiology Date/Time Source Procedure Growth Status 02/07/25 21:00 Blood Blood Culture - Preliminary Resulted 02/07/25 20:30 Leg Right Gram Stain - Final Resulted 02/07/25 20:30 Leg Right Wound Culture - Preliminary Resulted Problem List/Assessment/Plan Problem List/Assessment/Plan Assessment/Plan Acute metabolic/toxic encephalopathy -->likely due to sepsis , polysubstance abuse --> Keep on Telemetry Acute respiratory failure resolved --> Spo2 82% on arrival to ED Sepsis due to pneumonia gram +/gram -, bilateral leg cellulitis --> Continue antibiotics: Zosyn and vancomycin --> Pending blood culture --> Fluid Acute Pneumonia gram+/gram -: possible aspiration pneumonia --> Continue antibiotics : Zosyn and vancomycin --> Azithromycin --> Pending blood culture Bilateral leg cellulitis -->Tylenol for pain --> Antiboitic --> wound care --> Wound consult: evaluate need of further debridement DM type 2? --> Pending A1C Heart failure?, compensated --> Echo pending Mild hyponatremia Polysubstance abuse --> UDS positive for Fentanyl, Meth abuse H/o Asthma PE ruled out DVT ruled out Transaminitis Care discussed for more than 15 minute: Full code Case and plan discussed with Dr. Nunez Plan discussed with: Other My Orders My Orders Orders - ALEJANDRO SAM Procedure Category Date Status Time Blood Culture GERMÁN 02/08/25 Uncollected 08:25 Basic Metabolic Panel LAB 02/09/25 Verified 04:00 Date of Service: February 08, 2025 Billing Provider: MYRON ZHOU MD Common Visit Codes: [id number] INP/OBS CARE(HIGH) ALEJANDRO SAM February 08, 2025 17:31 MYRON ZHOU MD February 17, 2025 02:54
[2025-02-09 01:00] VITALS: BP 114/61; PULSE 95; RESP 20; TEMP 97.4; O2SAT 95
[2025-02-09 06:25] LABS: Basophils # (auto) 0 10 ^3/uL (0-0.2); Basophils % (auto) 0.1 % (0.0-2.0); Eosinophils # (auto) 0 10 ^3/uL (0-0.8); Hematocrit 30.9 % (41.0-53.0); Hemoglobin 10.6 g/dL (13.5-17.5); Lymphocytes # (auto) 1.1 10 ^3/uL (0.4-5.4); Lymphocytes % (auto) 10.7 % (10.0-50.0); Mean Corpuscular Hemoglobin 28.1 pg (28.0-32.0); Mean Corpuscular Hgb Conc. 34.3 g/dL (32.0-36.0); Mean Corpuscular Volume 81.8 fL (80.0-100.0); Monocytes # (auto) 0.7 10 ^3/uL (0-1.3); Monocytes % (auto) 7.3 % (0.0-12.0); Neutrophils # (auto) 8.2 10 ^3/uL (1.6-8.6); Neutrophils % (auto) 81.9 % (37.0-80.0); Nucleated Red Blood Cells % 0.1 %; Platelet Count (auto) 357 10^3/uL (140-450); Red Blood Cells 3.78 10^6/uL (4.5-5.90); Red Cell Distribution Width 13.5 % (11.8-14.3)
[2025-02-09 06:34] LABS: Anion Gap 8 (5-15); Carbon Dioxide 28 mmol/L (20-31); Chloride 102 mmol/L (98-107); Sodium 138 mmol/L (136-145)
[2025-02-09 06:40] LABS: BUN/Creatinine Ratio 18.8 (10.0-20.0)
[2025-02-09 06:43] LABS: Blood Urea Nitrogen 9 mg/dL (9-23); Calcium 8.2 mg/dL (8.7-10.4); Glucose 111 mg/dL (74-106); Potassium 3.3 mmol/L (3.5-5.1)
[2025-02-09 08:00] VITALS: PULSE 96; PULSE 99; RESP 19
[2025-02-09] MEDS: POTASSIUM EFFERVESENT TAB 25 MEQ PO ONE (10:48)
--- NOTE | 2025-02-09 15:18 | DVHPNRES ---
Progress Note Date Seen: February 09, 2025 Resident Creating Document: ALEJANDRO SAM RESIDENT Has the PT tested + for MRSA If YES, has PT been informed?: No Medical Necessity Reason Pt with a Central, PICC or Fol: No Medical Necessity Reason History of Present Illness A 35-year-old male with past medical history of asthma and CHF who presented to the ED for evaluation of chronic non-healing wounds in both lower extremities, ongoing for over 2 months. He reports worsening redness, swelling, and purulence. He denies follow-up with a doctor or wound care prior to presentation. He also endorsed shortness of breath. Per mother, he appeared more confused over the past day, which prompted ED evaluation. On arrival, he was found to be hypoxic with SpO2 82% on room air, tachycardic in the 130s.He denied recent drug use, but urine tox screen returned positive for fentanyl and meth. CT angiogram of the chest ruled out PE but revealed multifocal bilateral pneumonia, more severe in the RLL, possibly aspiration in etiology. There is also mild mediastinal and hilar lymphadenopathy, and a small right pleural effusion. Due to persistent altered mentation and concern for sepsis, he was started on vancomycin and ceftriaxone, IV fluids, and a central line was placed after repeated peripheral IV removal by the patient. PAST MEDICAL HISTORY: Asthma, Congestive heart failure (CHF) SURGICAL HISTORY: Cholecystectomy SOCIAL HISTORY: Non-smoker, Denies alcohol use,(contradicted by tox screen: fentanyl and meth positive) h/o heroin abuse PN: 02/08/2025: This is a 35-year-old male who was admitted overnight for altered mental status. Patient was deeply asleep when i was at bed side. I was not able to get any information from the patient today. However, information from the night doctors stated that patient was brought in altered has bilateral non-healing wounds in his lower extremities that has been ongoing for the past 2 months. Patient reports worsening of this bilateral wound associated with swelling and purulent discharges. Patient denied ever seen a doctor for the wound and he also endorsed shortness of breaths. His initial vitals revealed tachycardia HR: 1130, hypoxic with SpO2 82% on room air, hypotension and blood wok showed leukocytosis. Wound and blood taken for culture. Pending report PN: 02/09/2025 I went to assess patient today. He to " go away. I dont want to receive medical care anymore". Patient did not want me to examine. His lab report showed improved wbc 10.0, blood culture positive with gram+ cocci. Will repeat blood culture. Patient is currently on azithromycin, zosyn and Vancomycin. Subjective Review of Systems Unable to assess today as patient because said " go away, I don't want medical care anymore" Constitutional: Unable to assess HEENT:Unable to assess Cardiovascular: Unable to assess Respiratory: Unable to assess GI: Unable to assess : Unable to assess Endocrine: Unable to assess Elliot: Unable to assess Musculoskeletal: Unable to assess Psych: Unable to assess Objective vital signs Vital Sign Date Time Temp Pulse Resp B/P (MAP) Pulse Ox O2 Delivery O2 Flow Rate FiO2 02/09/25 08:00 96 02/09/25 08:00 19 Nasal Cannula* 4 36 02/09/25 01:00 97.4 114/61 (78) 95 97.4 Total Intake and Output 02/08/25 02/08/25 02/09/25 15:00 23:00 07:00 Intake Total 150 ml 300 ml Output Total 500 ml Balance -350 ml 300 ml medications Current Medications Medications Dose Ordered Sig/Evelin Route Start Time Stop Time Status Last Admin Dose Admin Sodium Chloride 1,000 ml @ 100 mls/hr Q10H IV 02/08/25 01:45 02/08/25 02:30 100 MLS/HR Acetaminophen 650 mg Q6HP PRN PO 02/08/25 01:45 Acetaminophen/ Hydrocodone Bitart 1 tab Q4HP PRN PO 02/08/25 01:45 Ondansetron HCl 4 mg Q4HP PRN IV 02/08/25 01:45 Enoxaparin Sodium 40 mg DAILY SC 02/08/25 10:00 02/09/25 10:49 40 MG Vancomycin HCl 0 ml @ 0 mls/hr UD IV 02/08/25 01:45 Piperacillin Sod/ Tazobactam Sod 100 ml @ 25 mls/hr Q8HR IV 02/08/25 06:00 02/09/25 13:38 25 MLS/HR Azithromycin 250 ml @ 125 mls/hr DAILY IV 02/08/25 01:45 02/09/25 10:47 125 MLS/HR Vancomycin HCl 250 ml @ 200 mls/hr Q8H IV 02/09/25 20:00 Examination General Appearance: A0X3, sleeping, disheveled HEENT: Atraumatic, Respiratory: could not assess Cardiovascular: could not assess Abdominal: could not assess Extremities: two bandage wraped around his legs Skin: could not assess Neuro: lying in bed Psych/Mental Status: could not assess laboratory and microbiology Laboratory Tests 02/09/25 05:39 Test 02/09/25 05:39 Range/Units Serum Glucose 111 H 74-106 mg/dL Microbiology Date/Time Source Procedure Growth Status 02/07/25 21:00 Blood Blood Culture - Preliminary Resulted 02/07/25 20:30 Leg Right Gram Stain - Final Resulted 02/07/25 20:30 Leg Right Wound Culture - Preliminary Resulted Problem List/Assessment/Plan Problem List/Assessment/Plan Assessment/Plan Acute metabolic/toxic encephalopathy -->likely due to sepsis , polysubstance abuse --> Keep on Telemetry Acute respiratory failure resolved --> Spo2 82% on arrival to ED Sepsis due to pneumonia gram +/gram -, bilateral leg cellulitis --> Continue antibiotics: Zosyn and vancomycin --> Pending blood culture --> Fluid Acute Pneumonia gram+/gram -: possible aspiration pneumonia --> Continue antibiotics : Zosyn and vancomycin --> Azithromycin --> Pending blood culture Bilateral leg cellulitis -->Tylenol for pain --> Antiboitic --> wound care --> Wound consult: evaluate need of further debridement Heart failure?, compensated --> Echo pending Mild hyponatremia Polysubstance abuse --> UDS positive for Fentanyl, Meth abuse H/o Asthma PE ruled out DVT ruled out Transaminitis Patient wants to sign out AMA 02/09/2025 Care discussed for more than 15 minute: Full code Case and plan discussed with Dr. Nunez Plan discussed with: Other My Orders My Orders Orders - ALEJANDRO SAM RESIDENT Procedure Category Date Status Time Cleanse Wound With PURVI 02/08/25 In Process Wound Clean 13:27 Notify Provider NOTICE 02/09/25 Transmitted Malnutrition 07:31 Nutritional NOURISH 02/09/25 Transmitted Supplements 07:31 Dietary NOTICE 02/09/25 Transmitted Recommendations 07:31 Blood Culture GERMÁN 02/09/25 Uncollected 08:50 Mrsa Screen GERMÁN 02/09/25 In Process 07:45 Dietary Evaluation Review Recommendations by RD: Dietary education by RD, Protein Supplementation Comments: 1) Initiate Bravo @ 1 pkt bid 2) Initiate Pro-Stat @ 30 mL qd 3) Initiate multivitamin @ 1 tb qd 4) Add cardiac restriction to diet 5) Refer to outpatient RD for weight management 6) Follow-up with cardiology 7) Continue to monitor I&O, labs, and skin integrity Expected Outcomes/Goals: 1) appetite and labs to improve 2) wound to improve 3) follow-up in 3-5 days Date of Service: February 09, 2025 Billing Provider: MYRON ZHOU MD Common Visit Codes: [id number] INP/OBS CARE(HIGH) ALEJANDRO SAM RESIDENT February 09, 2025 15:18 MYRON ZHOU MD February 17, 2025 03:00
[2025-02-09] MEDS ORDERED: PIPERACILLIN-TAZOB 3.375GM 100 ML IV SCH (20:00)
[2025-02-09] MEDS ORDERED: VANCOMYCIN 1.25GM/250ML 250 ML IV SCH (20:00)
--- NOTE | 2025-02-09 23:58 | DVHDSRES ---
Discharge Summary Date of Admission Resident Creating Document: ALEJANDRO SAM RESIDENT February 08, 2025 at 01:33 Date of Discharge: February 09, 2025 Admitting Diagnosis Sepsis metabolic encephalopathy Labs/Diagnostic Data: PATIENT: BRIJESH SANTA ACCT: [id number] UNIT: [id number] : 1990 LOC: ER ROOM / BED: / AGE / SEX: 35 / M ADM STATUS: REG ER SERVICE 32 ORDERING PHYSICIAN: DANIELLE DAY MD PROCEDURE(s): BLDVT - BiLat Lower DVT REASON: b/l le edema ORDER NUMBER(s): [id number], ACCESSION NUMBER(s): [id number] Bilateral lower extremity venous duplex Clinical History: b/l le edema Comparison: None Technique: Duplex Doppler evaluation of the deep venous systems of both lower extremities from the common femoral veins to the popliteal veins including color Doppler and spectral/pulsed waveform analysis was performed. Findings: RIGHT SIDE: The common femoral vein demonstrates appropriate compressibility and waveform variability. There is compressibility/patency of the great saphenous vein at the proximal thigh. The femoral vein demonstrates appropriate compressibility and waveform variability. The deep femoral vein demonstrates appropriate compressibility and waveform variability. The popliteal vein demonstrates appropriate compressibility and waveform variability. There is normal compressibility at the tibioperoneal trunk. LEFT SIDE: The common femoral vein demonstrates appropriate compressibility and waveform variability. There is compressibility/patency of the great saphenous vein at the proximal thigh. The femoral vein demonstrates appropriate compressibility and waveform variability. The deep femoral vein demonstrates appropriate compressibility and waveform variability. The popliteal vein demonstrates appropriate compressibility and waveform variability. There is normal compressibility at the tibioperoneal trunk. Impression: No evidence of right or left femoropopliteal venous thrombosis. ATED BY: ANGEL MC MD DICTATED DATE/TIME: 02/07/252206 PATIENT: BRIJESH SANTA ACCT: [id number] UNIT: [id number] : 1990 LOC: ER ROOM / BED: / AGE / SEX: 35 / M ADM STATUS: REG ER SERVICE 32 ORDERING PHYSICIAN: DANIELLE DAY MD PROCEDURE(s): CTACH - CT ANGIO CHEST CONTRAST REASON: dyspnea, hypoxia, le edema ORDER NUMBER(s): [id number], ACCESSION NUMBER(s): [id number] CLINICAL HISTORY: dyspnea, hypoxia, le edema TECHNIQUE: CT angiogram of the chest was performed with intravenous contrast. 3D MIP reconstructed images were created and archived on the PACS system. This exam was performed according to our departmental dose optimization program. Up-to-date CT equipment and radiation dose reduction techniques are utilized as appropriate. CTDI: DLP: WID: COMPARISON: None FINDINGS: Lower Neck: Unremarkable Axilla, Mediastinum and Piedad: No axillary lymphadenopathy. There is mediastinal and bilateral hilar lymphadenopathy. Heart and Great Vessels: Normal-sized heart without pericardial effusion. Thoracic aorta is patent and normal caliber. Patent 3-vessel aortic arch. There is no central or segmental pulmonary artery filling defect identified. Slight limited evaluation of subsegmental pulmonary arteries due to respiratory motion. Airway, Lungs and Pleura: There is layering debris in the trachea and right bronchus intermedius. There are patchy airspace consolidations bilaterally and a large patchy and confluent airspace consolidation in the right lower. Small right pleural effusion. Chest Wall and Osseous Structures: Unremarkable. Upper abdomen: Thickening of the bilateral adrenal glands. Prior cholecystectomy. No acute abnormality. IMPRESSION: 1. No evidence of pulmonary embolism. 2. Multifocal bilateral pneumonia. This is severe in the right lower lobe where there is a large airspace consolidation. This could potentially be on the basis of aspiration given mild layering debris in the trachea and right bronchus intermedius. 3. Small right pleural effusion. 4. Mild mediastinal and bilateral hilar lymphadenopathy, likely reactive. ATED BY: JESSIE SIMENTAL MD DICTATED DATE/TIME: 02/08/25 0014 PATIENT: BRIJESH SANTA ACCT: [id number] UNIT: [id number] : 1990 LOC: ER ROOM / BED: / AGE / SEX: 35 / M ADM STATUS: REG ER SERVICE 32 ORDERING PHYSICIAN: DANIELLE DAY MD PROCEDURE(s): CXR1 - CHEST XRAY 1 VIEW REASON: Suspected Sepsis ORDER NUMBER(s): [id number], ACCESSION NUMBER(s): [id number] CHEST RADIOGRAPH Indication: Suspected Sepsis Technique: Single frontal view of the chest was obtained COMPARISON: None FINDINGS / IMPRESSION: Lines and Tubes: None Lungs: Extensive airspace consolidation in right lower lobe consistent with pneumonia. Mild nonspecific opacity noted at left lung base which may also represent pneumonia. Pleura: No effusion. No pneumothorax. Cardiomediastinal contours: Unremarkable ATED BY: ANGEL MC MD DICTATED DATE/TIME: 02/07/25 7565 Laboratory Results Test 02/09/25 05:39 02/08/25 08:53 02/08/25 00:26 02/08/25 00:20 White Blood Count 10.0 10^3/uL (4.4-10.8) Red Blood Count 3.78 10^6/uL (4.5-5.90) Hemoglobin 10.6 g/dL (13.5-17.5) Hematocrit 30.9 % (41.0-53.0) Mean Corpuscular Volume 81.8 fL (80.0-100.0) Mean Corpuscular Hemoglobin 28.1 pg (28.0-32.0) Mean Corpuscular Hemoglobin Concent 34.3 g/dL (32.0-36.0) Red Cell Distribution Width 13.5 % (11.8-14.3) Platelet Count 357 10^3/uL (140-450) Mean Platelet Volume 7.1 fL (6.9-10.8) Neutrophils (%) (Auto) 81.9 % (37.0-80.0) Lymphocytes (%) (Auto) 10.7 % (10.0-50.0) Monocytes (%) (Auto) 7.3 % (0.0-12.0) Eosinophils (%) (Auto) 0.0 % (0.0-7.0) Basophils (%) (Auto) 0.1 % (0.0-2.0) Neutrophils # (Auto) 8.2 10 ^3/uL (1.6-8.6) Lymphocytes # (Auto) 1.1 10 ^3/uL (0.4-5.4) Monocytes # (Auto) 0.7 10 ^3/uL (0-1.3) Eosinophils # (Auto) 0 10 ^3/uL (0-0.8) Basophils # (Auto) 0 10 ^3/uL (0-0.2) Nucleated Red Blood Cells 0.1 % Sodium Level 138 mmol/L (136-145) Potassium Level 3.3 mmol/L (3.5-5.1) Chloride Level 102 mmol/L (98-107) Carbon Dioxide Level 28 mmol/L (20-31) Anion Gap 8 (5-15) Blood Urea Nitrogen 9 mg/dL (9-23) Creatinine 0.48 mg/dL (0.700-1.30) Glomerular Filtration Rate Calc 138 mL/min (>90) BUN/Creatinine Ratio 18.8 (10.0-20.0) Serum Glucose 111 mg/dL (74-106) Calcium Level 8.2 mg/dL (8.7-10.4) Random Vancomycin Level < 3.0 ug/mL (5-10) Hemoglobin A1c 5.3 % A1C (<5.7) Lactic Acid Level 1.1 mmol/L (0.4-2.0) Total Bilirubin 0.4 mg/dL (0.2-1.0) Aspartate Amino Transferase (AST) 56 U/L (13-40) Alanine Aminotransferase (ALT) 42 U/L (7-40) Alkaline Phosphatase 129 U/L (46-116) Total Protein 7.8 g/dL (5.7-8.2) Albumin 3.3 g/dL (3.2-4.8) Thyroid Stimulating Hormone (TSH) 0.71 uIU/mL (0.55-4.78) Hepatitis A Antibody Total Positive (Negative) Hepatitis B Surface Antigen Negative (Negative) Hepatitis B Surface Antibody Positive (Negative) Hepatitis B Core Total Antibody Negative (Negative) Hepatitis C Antibody Positive (Negative) HIV (1&2) Antibody Negative (Negative) Urine Color Yellow (Yellow) Urine Clarity Clear (Clear) Urine pH 7.5 (5.0-9.0) Urine Specific [place] > 1.050 (1.001-1.035) Urine Protein 2+ (Negative) Urine Ketones Negative (Negative) Urine Blood 2+ /uL (Negative) Urine Nitrite Negative (Negative) Urine Bilirubin Negative (Negative) Urine Urobilinogen Over mg/dL (Negative) Urine Leukocyte Esterase Negative /uL (Negative) Urine RBC 3 /hpf (0 - 3) Urine Microscopic WBC 1 /HPF (0-3) Urine Squamous Epithelial Cells None seen /hpf (<5) Urine Bacteria None seen /hpf (None Seen) Urine Glucose Trace mg/dL (Normal) Urine Opiates Screen Neg (NEGATIVE) Urine Fentanyl Screen Pos (NEGATIVE) Urine Barbiturates Screen Neg (NEGATIVE) Urine Phencyclidine Screen Neg (NEGATIVE) Urine Amphetamines Screen Pos (NEGATIVE) Urine Benzodiazepines Screen Neg (NEGATIVE) Urine Cocaine Screen Neg (NEGATIVE) Urine Cannabinoids Screen Neg (NEGATIVE) Prothrombin Time 11.9 sec (9.3-11.8) Prothrombin Time INR 1.14 (0.9-1.15) Troponin I High Sensitivity 6 ng/L (</=54) Test 02/07/25 23:19 02/07/25 21:00 02/07/25 20:19 Blood Gas Specimen Type Arterial Blood Gas Sample Site Left radial Blood Gas Patient Temperature 37.0 Arterial Blood Date Drawn [id number] Arterial Blood pH 7.467 (7.350-7.450) Arterial Blood Partial Pressure CO2 37.2 mmHg (35.0-48.0) Arterial Blood Partial Pressure O2 86.5 mmHg (83.0-108.0) Arterial Blood HCO3 26.3 mmol/L (21.0-28.0) Arterial Blood Oxygen Saturation 96.9 % (94.0-98.0) Arterial Blood Base Excess 2.6 mmol/L (-2.0-3.0) Arterial Blood Oxyhemoglobin 96.1 % (94.0-98.0) Arterial Blood Carboxyhemoglobin 0.3 % (0.5-1.5) Arterial Blood Methemoglobin 0.5 % (0.0-1.5) Attila Test Yes Blood Gas Total Hemoglobin 11.70 g/dL (13.5-17.5) Blood Gas Liter Flow 4.00 Blood Gas Modality Nasal cannula FiO2 % 36.0 B-Type Natriuretic Peptide 28.84 pg/mL (0-100) Plasma/Serum Blood Alcohol < 3.0 mg/dL (<10) POC Glucose 200 mg/dl (70-106) Other Laboratory Tests 02/09/25 05:39 Brief Hx & Hospital Course: History of Present Illness A 35-year-old male with past medical history of asthma and CHF who presented to the ED for evaluation of chronic non-healing wounds in both lower extremities, ongoing for over 2 months. He reports worsening redness, swelling, and purulence. He denies follow-up with a doctor or wound care prior to presentation. He also endorsed shortness of breath. Per mother, he appeared more confused over the past day, which prompted ED evaluation. On arrival, he was found to be hypoxic with SpO2 82% on room air, tachycardic in the 130s.He denied recent drug use, but urine tox screen returned positive for fentanyl and meth. CT angiogram of the chest ruled out PE but revealed multifocal bilateral pneumonia, more severe in the RLL, possibly aspiration in etiology. There is also mild mediastinal and hilar lymphadenopathy, and a small right pleural effusion. Due to persistent altered mentation and concern for sepsis, he was started on vancomycin and ceftriaxone, IV fluids, and a central line was placed after repeated peripheral IV removal by the patient. PAST MEDICAL HISTORY: Asthma, Congestive heart failure (CHF) SURGICAL HISTORY: Cholecystectomy SOCIAL HISTORY: Non-smoker, Denies alcohol use,(contradicted by tox screen: fentanyl and meth positive) h/o heroin abuse PN: 02/08/2025: This is a 35-year-old male who was admitted overnight for altered mental status. Patient was deeply asleep when i was at bed side. I was not able to get any information from the patient today. However, information from the night doctors stated that patient was brought in altered has bilateral non-healing wounds in his lower extremities that has been ongoing for the past 2 months. Patient reports worsening of this bilateral wound associated with swelling and purulent discharges. Patient denied ever seen a doctor for the wound and he also endorsed shortness of breaths. His initial vitals revealed tachycardia HR: 1130, hypoxic with SpO2 82% on room air, hypotension and blood wok showed leukocytosis. Wound and blood taken for culture. Pending report PN: 02/09/2025 I went to assess patient today. He to " go away. I dont want to receive medical care anymore". Patient did not want me to examine. His lab report showed improved wbc 10.0, blood culture positive with gram+ cocci. Will repeat blood culture. Patient is currently on azithromycin, zosyn and Vancomycin. AT 17;02 his nurse informed me that he had left AMA. Diagnoses Acute metabolic/toxic encephalopathy Acute respiratory failure resolved Sepsis due to pneumonia gram +/gram -, bilateral leg cellulitis Acute Pneumonia gram+/gram -: possible aspiration pneumonia Bilateral leg cellulitis Heart failure?, compensated Mild hyponatremia Polysubstance abus-> UDS positive for Fentanyl, Meth abuse H/o Asthma PE ruled out DVT ruled out Transaminitis Dr. Nunez informed of the patient's department againt medical advise. Condition at Discharge: Undetermined Final Diagnosis/Problems List Acute metabolic/toxic encephalopathy Acute respiratory failure resolved Sepsis due to pneumonia gram +/gram -, bilateral leg cellulitis Acute Pneumonia gram+/gram -: possible aspiration pneumonia Bilateral leg cellulitis Heart failure?, compensated Mild hyponatremia Polysubstance abus-> UDS positive for Fentanyl, Meth abuse H/o Asthma PE ruled out DVT ruled out Transaminitis Discharge Disposition: AMA Discharge Statement: "Patient was advised to return to the ER or call 911 if any headaches, dizziness, shortness of breath, chest pain, abdominal pain, bleeding, fevers, or worsening of medical condition. Patient was counseled about treatment plan, medications, possible side effects, patient�verbalized understanding. All questions were answered to the best of my ability. This discharge took greater then 30 minutes in planning, reviewing documentation, counseling the patient, and discussing with other team members." ASSESSMENT ASSESSMENT Assessment ALEJANDRO SAM RESIDENT February 09, 2025 23:58
--- NOTE | 2025-02-10 02:36 | DVHSR ---
APPROVED REPORT EXAM: Two-dimensional and M-mode echocardiogram with Doppler and color Doppler. Blood Pressure: 117/71 mmHg INDICATION Heart Failure RISK FACTORS Height: 5'8", Weight: 222 DIMENSIONS LVDd4.7 (3.8-5.7cm)LA (2D)4.0 (1.9-4.0cm)Aortic Root3.1 (2.0-3.7cm) LVDs3.1 (2.5-4.0cm)LA (MM) (1.9-4.0cm)Aortic Cusp Exc2.1 (1.5-2.0cm) EF (%) 62.0 (55-70%)Rt. Atrium3.8 (1.9-4.0cm)Asc. Aorta cm IVSd0.7 (0.7-1.1cm)RV (D) (1.8-2.4cm) PWd0.8 (0.7-1.1cm) Mitral Valve MitralMitral Stenosis E wave0.78m/sMV Mean GR.mmHg A wave0.54m/sMV Peak GR.mmHg E/A ratio1.42D MVAcm2 DECEL [id number] 1/2 Timems Aortic Valve Aortic ValveAortic Stenosis V11.17m/Solange Mean GR.4mmHg V21.30m/Solange Peak GR.7mmHg LVOT Diameter2.2 (1.8-2.4cm)Doppler AVA3.42cm2 Pulmonic Valve V20.87m/s Conclusion DYSKINESIS OF IVS SLIGHTLY DILATED RV LIKELY CHRONIC OR ACUTE RV STRAIN PATTERN CORRELATE CLINICALLY NORMAL LV EF AND IS 55% NORMAL VALVE NO EFFUSION
== END 2025-02-09 17:02 | disposition left against medical advice (07) | DRG 720 ==
LOC: ER 20:03 → OVERFLOW 02-08 01:33 → TELE-WESTW 02-08 03:15
PROVIDERS: ADMIT Student in an Organized Health Care Education/Training Program; ATTEND Student in an Organized Health Care Education/Training Program
PROC: 06HY33Z Insertion of Infusion Device into Lower Vein, Percutaneous Approach (ICD-10-PCS; principal; 2025-02-08)
DX: A41.59 Other Gram-negative sepsis (principal); J96.01 Acute respiratory failure with hypoxia; J69.0 Pneumonitis due to inhalation of food and vomit; G92.8 Other toxic encephalopathy; J15.69 Pneumonia due to other Gram-negative bacteria; J15.9 Unspecified bacterial pneumonia; I50.9 Heart failure, unspecified; Z53.29 Procedure and treatment not carried out because of patient's decision for other reasons; L03.115 Cellulitis of right lower limb; L03.116 Cellulitis of left lower limb; J45.909 Unspecified asthma, uncomplicated; R74.01 Elevation of levels of liver transaminase levels; E87.1 Hypo-osmolality and hyponatremia; F15.10 Other stimulant abuse, uncomplicated; Z90.49 Acquired absence of other specified parts of digestive tract; Z79.899 Other long term (current) drug therapy
CPT/HCPCS: 36415; 36556; 36600; 71045; 71275; 80048; 80053; 80202; 80307; 80320; 81001; 82805; 82962; 83036; 83605; 83880; 84443; 84484; 85025; 85610; 86703; 86704; 86706; 86708; 86803; 87040; 87077; 87081; 87186; 87205; 87340; 92610; 93306; 93970; 96365; 96367; 96375; 99291; G0378; J0131; J1885; J2543

== ENCOUNTER 2025-06-13 15:58 | Emergency (ER) | payer MEDICAID ==
[~2025-06-13] VITALS: Ht 172.7 cm; Wt 90.9 kg
[2025-06-13 15:59] VITALS: BP 130/63; PULSE 110; RESP 16; TEMP 97.5; O2SAT 94
[2025-06-13] MEDS ORDERED: KETOROLAC TROMETH 60MG/2ML VIAL IM ONE (16:45)
--- NOTE | 2025-06-13 17:15 | ED.PDOC ---
Musculoskeletal HPI Comments 35 y/o M, with PMHx of CHF and asthma presents to the ED for CC of bilateral leg wounds. Patient states, he has bilateral leg wounds that have been present xmonths that have now began to weep. Patient reports, that when he was incarcerated he had received treatment for symptoms however, since being relaesed he has no PCP to follow up with. Patient denies any fever nausea or vomiting. Patient was mildly tachycardic at arrival. Chief Complaint: Lower Extremity Time Seen by MD: 17:00 Reviewed Notes: Nurses Notes, Medications, Allergies Allergies: Coded Allergies: NO KNOWN ALLERGIES (Unverified , 02/07/25) Information Source: Patient Mode of Arrival: Ambulatory Location: Bilateral Extremity Location: Leg Timing: Weeks Prehospital treatment: None Severity: Severe Able to Move Extremity: Yes Bear Weight: Fully Pain: Moderate Mechanism: Spontaneous Circumstances: Spontaneous Onset of Symptoms: Spontaneous Symptoms: Swelling, Pain DVT Risk Factors: NONE Last Tetanus: UTD, Unknown Associated signs and symptoms: Swelling Past Medical History PAST MEDICAL HISTORY: Asthma, CHF Past Medical History (Other): Patient has a history of lower extremity wounds. Surgical History: Denies all surgeries Family History Family History: Reviewed,noncontributory to illness Social History Smoker: Non-Smoker Alcohol: Denies ETOH Use Drugs: Denies Drug Use Lives In: Home Constitutional: denies: chills, diaphoresis, fatigue, fever, malaise, sweats, weakness, others EENTM: denies: blurred vision, double vision, ear bleeding, ear discharge, ear drainage, ear pain, ear ringing, eye pain, eye redness, hearing loss, mouth pain, mouth swelling, nasal discharge, nose bleeding, nose congestion, nose pain, photophobia, tearing, throat pain, throat swelling, voice changes, others Respiratory: denies: cough, hemoptysis, orthopnea, SOB at rest, shortness of breath, SOB with excertion, stridor, wheezing, others Cardiovascular: denies: chest pain, dizzy spells, diaphoresis, Dyspnea on exertion, edema, irregular heart beat, left arm pain, lightheadedness, palpitations, PND, syncope, others Gastrointestinal: denies: abdomen distended, abdominal pain, blood streaked bowels, constipated, diarrhea, dysphagia, difficulty swallowing, hematemesis, melena, nausea, poor appetite, poor fluid intake, rectal bleeding, rectal pain, vomiting, others Genitourinary: denies: burning, dysuria, flank pain, frequency, hematuria, incontinence, penile discharge, penile sore, pain, testicle pain, testicle swelling, urgency, others Neurological: denies: dizziness, fainting, headache, left sided numbness, left sided weakness, numbness, paresthesia, pre-existing deficit, right sided numbness, right sided weakness, seizure, speech problems, tingling, tremors, weakness, others Musculoskeletal: reports: others (bilateral leg swelling with extensive draining wounds); denies: back pain, gout, joint pain, joint swelling, muscle pain, muscle stiffness, neck pain Integumetry: denies: bruises, change in color, change in hair/nails, dryness, laceration, lesions, lumps, rash, wounds, others Allergic/Immunocompromised: denies: Difficulty Healing, Frequent Infections, Hives, Itching, others Hematologic/Lymphatic: denies: anemia, blood clots, easy bleeding, easy bruising, swollen glands, others Endocrine: denies: excessive hunger, excessive sweating, excessive thirst, excessive urination, flushing, intolerance to cold, intolerance to heat, unexplained weight gain, unexplained weight loss, others Psychiatric: denies: anxiety, bipolar disorder, depression, hopeless, panic disorder, schizophrenia, sleepless, suicidal, others All Other Systems: Reviewed and Negative Physical Exam General Appearance: Moderate Distress ([id number] distress due to his extensive of leg wounds.), Normal HEENT: Normal ENT Inspection, Pharynx Normal, TMs Normal Neck: Full Range of Motion, Non-Tender, Normal, Normal Inspection Respiratory: Chest Non-Tender, Lungs Clear, No Accessory Muscle Use, No Respiratory Distress, Normal Breath Sounds Cardiovascular: No Edema, No JVD, No Murmur, No Gallop, Normal Peripheral Pulses, Regular Rate/Rhythm Breast Exam: Deferred Gastrointestinal: No Organomegaly, Non Tender, No Pulsatile Mass, Normal Bowel Sounds, Soft Genitalia: Deferred Pelvic: Deferred Rectal: Deferred Extremities: Other (Patient displays significant cellulitic concerns and bilateral lower extremities with wet weeping wounds noted from be slightly distal knee region all the way into the ankle. 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 Was a procedure done?: No Differential Diagnosis EXT Differential Diagnosis: Cellulitis X-Ray, Labs, Meds, VS Vital Signs Date Time Temp Pulse Resp B/P (MAP) Pulse Ox O2 Delivery O2 Flow Rate FiO2 06/13/25 15:59 97.5 110 16 130/63 94 97.5 Lab Test 06/13/25 17:03 Range/Units White Blood Count 7.9 4.4-10.8 10^3/uL Red Blood Count 4.35 L 4.5-5.90 10^6/uL Hemoglobin 12.1 L 13.5-17.5 g/dL Hematocrit 35.0 L 41.0-53.0 % Mean Corpuscular Volume 80.6 80.0-100.0 fL Mean Corpuscular Hemoglobin 27.8 L 28.0-32.0 pg Mean Corpuscular Hemoglobin Concent 34.5 32.0-36.0 g/dL Red Cell Distribution Width 14.3 11.8-14.3 % Platelet Count 512 H 140-450 10^3/uL Mean Platelet Volume 6.3 L 6.9-10.8 fL Neutrophils (%) (Auto) 68.8 37.0-80.0 % Lymphocytes (%) (Auto) 19.8 10.0-50.0 % Monocytes (%) (Auto) 10.6 0.0-12.0 % Eosinophils (%) (Auto) 0.2 0.0-7.0 % Basophils (%) (Auto) 0.6 0.0-2.0 % Neutrophils # (Auto) 5.4 1.6-8.6 10 ^3/uL Lymphocytes # (Auto) 1.6 0.4-5.4 10 ^3/uL Monocytes # (Auto) 0.8 0-1.3 10 ^3/uL Eosinophils # (Auto) 0 0-0.8 10 ^3/uL Basophils # (Auto) 0 0-0.2 10 ^3/uL Nucleated Red Blood Cells 0.2 % Sodium Level 136 136-145 mmol/L Potassium Level 3.4 L 3.5-5.1 mmol/L Chloride Level 99 98-107 mmol/L Carbon Dioxide Level 30 20-31 mmol/L Anion Gap 7 5-15 Blood Urea Nitrogen 5 L 9-23 mg/dL Creatinine 0.66 L 0.700-1.30 mg/dL Glomerular Filtration Rate Calc 125 >90 mL/min BUN/Creatinine Ratio 7.6 L 10.0-20.0 Serum Glucose 119 H 74-106 mg/dL Lactic Acid Level 1.2 0.4-2.0 mmol/L Calcium Level 8.8 8.7-10.4 mg/dL Total Bilirubin 0.3 0.2-1.0 mg/dL Aspartate Amino Transferase (AST) 33 13-40 U/L Alanine Aminotransferase (ALT) 13 7-40 U/L Alkaline Phosphatase 98 46-116 U/L Troponin I High Sensitivity < 3 L </=54 ng/L Total Protein 7.8 5.7-8.2 g/dL Albumin 3.7 3.2-4.8 g/dL Lipase 28 12-53 U/L X-Ray, Labs, Meds, VS Comment All labs performed the ED were evaluated by me personally. Urinalysis was pending at time of this note. Serum studies were unremarkable for any bacteremia or systemic concerns. Patient will require IV antibiotics and wound care to address his extensive and significant bilateral lower extremity wounds. Time of 1ST Reevaluation: 21:05 Reevaluation 1ST: Improved Consultation: PCP Patient Education/Counseling: Diagnosis, Treatment Family Education/Counseling: Diagnosis, Treatment, No Family Present Sepsis Sepsis Reasesment Focused Exam Orders: Laboratory Tests 06/13/25 17:03: Lactic Acid Level 1.2 Recent Procedure: No On Antibiotic Therapy: No Respiratory Rate >20: No Heart Rate >90: Yes Temp<36 C (96.8 F) or >38.3 C: No SBP <90 or MAP <65 mmHG: No New Acute Mental Status Change: No Is the patient on CPAP, BIPAP,: No IV fluid given: No Departure 1 Departure Time of Disposition: 21:06 Impression: Primary Impression: Bilateral lower leg cellulitis Disposition: ADMITTED INPATIENT Condition: Fair Discharged With: Self Critical Care Note Critical Care Time?: No Stability Stability form required: No Heart Score Heart Score: Heart Score Response (Comments) Value History N/A 0 EKG N/A 0 Age N/A 0 Risk Factors N/A 0 Troponin N/A 0 Total 0 I personally scribed for EMMANUEL VARGAS PAC ([email or web address]) on 06/13/25 at 17:15. Electronically submitted by Umu Mirza ([email or web address]). I personally scribed for EMMANUEL VARGAS PAC ([email or web address]) on 06/13/25 at 17:40. Electronically submitted by Umu Mirza ([email or web address]). EMMANUEL VARGAS PAC Jun 13, 2025 17:15
[2025-06-13 17:16] LABS: Hematocrit 35.0 % (41.0-53.0); Hemoglobin 12.1 g/dL (13.5-17.5); Mean Corpuscular Hemoglobin 27.8 pg (28.0-32.0); Mean Corpuscular Volume 80.6 fL (80.0-100.0); Nucleated Red Blood Cells % 0.2 %
[2025-06-13 17:34] LABS: Alanine Aminotransferase 13 U/L (7-40); Albumin 3.7 g/dL (3.2-4.8); Alkaline Phosphatase 98 U/L (46-116); Anion Gap 7 (5-15); BUN/Creatinine Ratio 7.6 (10.0-20.0); Calcium 8.8 mg/dL (8.7-10.4); Carbon Dioxide 30 mmol/L (20-31); Chloride 99 mmol/L (98-107); Lipase 28 U/L (12-53); Sodium 136 mmol/L (136-145); Total Protein 7.8 g/dL (5.7-8.2)
[2025-06-13 17:35] LABS: Bilirubin, Total 0.3 mg/dL (0.2-1.0); Blood Urea Nitrogen 5 mg/dL (9-23); Glucose 119 mg/dL (74-106); Potassium 3.4 mmol/L (3.5-5.1)
[2025-06-13] MEDS ORDERED: PIPERACILLIN-TAZOB 3.375GM 100 ML IV ONE (21:15)
== END 2025-06-13 23:13 | disposition left against medical advice (07) ==
LOC: ER 16:02
DX: L03.116 Cellulitis of left lower limb (principal); L03.115 Cellulitis of right lower limb; J45.909 Unspecified asthma, uncomplicated; I50.9 Heart failure, unspecified
CPT/HCPCS: 36415; 80053; 83605; 83690; 84484; 85025